=== PATIENT | male | born 1950 | race Caucasian/White ===

== ENCOUNTER → 2025-04-27 06:35 | Outpatient (REF) | payer MEDICARE, BC, SELFPAY ==
[2025-04-27] MEDS: LEXISCAN 0.4 MG IV (08:10)
== END ==
LOC: RCS 06:35
PROVIDERS: ATTENDING PHYSICIAN Internal Medicine Cardiovascular Disease; FAMILY PHYSICIAN Family Medicine
DX: R06.02 Shortness of breath (principal); E78.5 Hyperlipidemia, unspecified; E11.9 Type 2 diabetes mellitus without complications
CPT/HCPCS: 78452; 93017; A9500; J2785